=== PATIENT | female | born 1940 | race Two or more races ===

== ENCOUNTER 2020-09-12 09:30 | Outpatient (CLI) | payer MEDICARE, BC | END 2020-09-12 23:59 | disposition home health service (06) | LOC: WOU 09:30 | PROVIDERS: ATTEND Specialist | DX: L89.893 Pressure ulcer of other site, stage 3 (principal); M86.172 Other acute osteomyelitis, left ankle and foot; G91.2 (Idiopathic) normal pressure hydrocephalus; Z86.73 Personal history of transient ischemic attack (TIA), and cerebral infarction without residual deficits | CPT/HCPCS: 87070 ×2; 87075 ×2; 87077 ×2; 87186 ×2; A6209; G0463 ==

== ENCOUNTER 2020-09-19 09:25 | Outpatient (CLI) | payer MEDICARE, BC ==
[2020-09-19] MEDS ORDERED: LIDOCAINE SOLN 4% 50 ML BOTTLE ONE (10:03)
== END 2020-09-19 23:59 | disposition home health service (06) ==
LOC: WOU 09:25
PROVIDERS: ATTEND Specialist
DX: L89.893 Pressure ulcer of other site, stage 3 (principal); M86.172 Other acute osteomyelitis, left ankle and foot; B95.2 Enterococcus as the cause of diseases classified elsewhere; G91.2 (Idiopathic) normal pressure hydrocephalus; Z86.73 Personal history of transient ischemic attack (TIA), and cerebral infarction without residual deficits
CPT/HCPCS: 11042; A6209

== ENCOUNTER → 2020-09-26 | Outpatient (CLI) | payer MEDICARE, BC | END | disposition home health service (06) | LOC: WOU 09:25 | PROVIDERS: ATTEND Specialist | DX: L89.893 Pressure ulcer of other site, stage 3 (principal); I69.30 Unspecified sequelae of cerebral infarction; G91.2 (Idiopathic) normal pressure hydrocephalus | CPT/HCPCS: A6209; G0463 ==

== ENCOUNTER 2020-10-03 12:58 | Outpatient (CLI) | payer MEDICARE, BC ==
[2020-10-03] MEDS ORDERED: LIDOCAINE SOLN 4% 50 ML BOTTLE ONE (13:32)
== END 2020-10-03 23:59 | disposition home health service (06) ==
LOC: WOU 12:58
PROVIDERS: ATTEND Specialist
DX: L89.893 Pressure ulcer of other site, stage 3 (principal); L02.416 Cutaneous abscess of left lower limb; G91.2 (Idiopathic) normal pressure hydrocephalus; I69.30 Unspecified sequelae of cerebral infarction
CPT/HCPCS: 10060; 87070-TC; 87075-TC; 87186-TC

== ENCOUNTER 2020-10-10 10:00 | Outpatient (CLI) | payer MEDICARE, BC ==
[2020-10-10] MEDS ORDERED: LIDOCAINE SOLN 4% 50 ML BOTTLE ONE (10:48)
== END 2020-10-10 23:59 | disposition home health service (06) ==
LOC: WOU 10:00
PROVIDERS: ATTEND Specialist
DX: L89.893 Pressure ulcer of other site, stage 3 (principal); G91.2 (Idiopathic) normal pressure hydrocephalus; I69.30 Unspecified sequelae of cerebral infarction
CPT/HCPCS: 11042; A6197

== ENCOUNTER 2020-10-24 10:05 | Outpatient (CLI) | payer MEDICARE, BC ==
[2020-10-24] MEDS ORDERED: LIDOCAINE SOLN 4% 50 ML BOTTLE ONE (10:06)
== END 2020-10-24 23:59 | disposition home health service (06) ==
LOC: WOU 10:05
PROVIDERS: ATTEND Specialist
DX: L89.893 Pressure ulcer of other site, stage 3 (principal); G91.2 (Idiopathic) normal pressure hydrocephalus; I69.30 Unspecified sequelae of cerebral infarction
CPT/HCPCS: 11042; A6210

== ENCOUNTER 2020-10-31 10:10 | Outpatient (CLI) | payer MEDICARE, BC ==
[~2020-10-31 10:10] MED LIST: LIDOCAINE SOLN 4% 50 ML BOTTLE ONE
== END 2020-10-31 23:59 | disposition home health service (06) ==
LOC: WOU 10:10
PROVIDERS: ATTEND Specialist
DX: L89.893 Pressure ulcer of other site, stage 3 (principal); G91.2 (Idiopathic) normal pressure hydrocephalus; K76.9 Liver disease, unspecified; Z98.2 Presence of cerebrospinal fluid drainage device; I69.354 Hemiplegia and hemiparesis following cerebral infarction affecting left non-dominant side; R32 Unspecified urinary incontinence; Z87.01 Personal history of pneumonia (recurrent); Z86.718 Personal history of other venous thrombosis and embolism; Z96.653 Presence of artificial knee joint, bilateral; Z91.041 Radiographic dye allergy status; Z88.8 Allergy status to other drugs, medicaments and biological substances; I48.91 Unspecified atrial fibrillation; Z79.899 Other long term (current) drug therapy
CPT/HCPCS: 11042; A6210

== ENCOUNTER 2020-11-14 10:00 | Outpatient (CLI) | payer MEDICARE, BC ==
[2020-11-14] MEDS ORDERED: LIDOCAINE SOLN 4% 50 ML BOTTLE ONE (10:27)
== END 2020-11-14 23:59 | disposition home health service (06) ==
LOC: WOU 10:00
PROVIDERS: ATTEND Specialist
DX: L89.893 Pressure ulcer of other site, stage 3 (principal); G91.2 (Idiopathic) normal pressure hydrocephalus; I69.30 Unspecified sequelae of cerebral infarction; Z96.653 Presence of artificial knee joint, bilateral; Z86.718 Personal history of other venous thrombosis and embolism; Z98.2 Presence of cerebrospinal fluid drainage device; Z79.899 Other long term (current) drug therapy; Z88.8 Allergy status to other drugs, medicaments and biological substances; Z88.6 Allergy status to analgesic agent; Z91.041 Radiographic dye allergy status
CPT/HCPCS: A6209; G0463

== ENCOUNTER 2020-12-12 10:35 | Outpatient (CLI) | payer MEDICARE, BC | END 2020-12-12 23:59 | disposition home health service (06) | LOC: WOU 10:35 | PROVIDERS: ATTEND Specialist | DX: L89.893 Pressure ulcer of other site, stage 3 (principal); G91.2 (Idiopathic) normal pressure hydrocephalus; I69.30 Unspecified sequelae of cerebral infarction | CPT/HCPCS: G0463 ==

== ENCOUNTER 2020-12-26 10:00 | Outpatient (CLI) | payer MEDICARE, BC ==
[2020-12-26] MEDS ORDERED: LIDOCAINE 2% JEL 5 ML TUBE ONE (10:11)
== END 2020-12-26 23:59 | disposition home health service (06) ==
LOC: WOU 10:00
PROVIDERS: ATTEND Specialist
DX: L89.893 Pressure ulcer of other site, stage 3 (principal); G91.2 (Idiopathic) normal pressure hydrocephalus; I69.30 Unspecified sequelae of cerebral infarction
CPT/HCPCS: G0463

== ENCOUNTER 2021-01-09 13:00 | Outpatient (CLI) | payer MEDICARE, BC | END 2021-01-09 23:59 | disposition home health service (06) | LOC: WOU 13:00 | PROVIDERS: ATTEND Specialist | DX: L89.893 Pressure ulcer of other site, stage 3 (principal); G91.2 (Idiopathic) normal pressure hydrocephalus; I69.30 Unspecified sequelae of cerebral infarction; Z96.652 Presence of left artificial knee joint | CPT/HCPCS: 73564; 87070; 87075; 87077; 87186; G0463 ==

== ENCOUNTER 2021-01-23 09:30 | Outpatient (CLI) | payer MEDICARE, BC | END 2021-01-23 23:59 | disposition home health service (06) | LOC: WOU 09:30 | PROVIDERS: ATTEND Specialist | DX: L89.893 Pressure ulcer of other site, stage 3 (principal); G91.2 (Idiopathic) normal pressure hydrocephalus; I69.30 Unspecified sequelae of cerebral infarction; Z96.653 Presence of artificial knee joint, bilateral | CPT/HCPCS: 11042; A6197 ==

== ENCOUNTER 2021-02-06 09:30 | Outpatient (CLI) | payer MEDICARE, BC | END 2021-02-06 23:59 | disposition home health service (06) | LOC: WOU 09:30 | PROVIDERS: ATTEND Specialist | DX: L89.893 Pressure ulcer of other site, stage 3 (principal); G91.2 (Idiopathic) normal pressure hydrocephalus; I69.30 Unspecified sequelae of cerebral infarction | CPT/HCPCS: G0463 ==

== ENCOUNTER 2021-02-13 09:30 | Outpatient (CLI) | payer MEDICARE, BC | END 2021-02-13 23:59 | disposition home health service (06) | LOC: WOU 09:30 | PROVIDERS: ATTEND Specialist | DX: G91.2 (Idiopathic) normal pressure hydrocephalus (principal); I69.30 Unspecified sequelae of cerebral infarction | CPT/HCPCS: G0463 ==

== ENCOUNTER 2021-03-06 09:34 | Outpatient (CLI) | payer MEDICARE, BC | END 2021-03-06 23:59 | disposition home or self-care (01) | LOC: US 09:34 | PROVIDERS: ATTEND Specialist | DX: M79.89 Other specified soft tissue disorders (principal) | CPT/HCPCS: 76882 ==

== ENCOUNTER 2021-03-06 10:00 | Outpatient (CLI) | payer MEDICARE, BC ==
[2021-03-06] MEDS ORDERED: LIDOCAINE 2% JEL 5 ML TUBE ONE (10:16)
== END 2021-03-06 23:59 | disposition home health service (06) ==
LOC: WOU 10:00
PROVIDERS: ATTEND Specialist
DX: L89.893 Pressure ulcer of other site, stage 3 (principal); G91.2 (Idiopathic) normal pressure hydrocephalus; I69.30 Unspecified sequelae of cerebral infarction
CPT/HCPCS: G0463

== ENCOUNTER 2021-03-13 10:37 | Outpatient (CLI) | payer MEDICARE, BC | END 2021-03-13 23:59 | disposition home health service (06) | LOC: WOU 10:37 | PROVIDERS: ATTEND Specialist | DX: L89.893 Pressure ulcer of other site, stage 3 (principal); G91.2 (Idiopathic) normal pressure hydrocephalus; I69.30 Unspecified sequelae of cerebral infarction | CPT/HCPCS: G0463 ==

== ENCOUNTER 2021-03-20 09:00 | Outpatient (CLI) | payer MEDICARE, BC | END 2021-03-20 23:59 | disposition home or self-care (01) | LOC: VASLAB 09:00 | PROVIDERS: ATTEND Internal Medicine | DX: S81.002D Unspecified open wound, left knee, subsequent encounter (principal); X58.XXXD Exposure to other specified factors, subsequent encounter; I73.9 Peripheral vascular disease, unspecified; R06.02 Shortness of breath | CPT/HCPCS: 71046; G0463 ==